=== PATIENT | female | born 1945 | race Caucasian/White ===

== ENCOUNTER 2024-11-05 14:41 | Emergency (ER) | payer MEDICARE ==
[~2024-11-05] VITALS: Ht 162.6 cm; Wt 64.0 kg
[2024-11-05 14:48] VITALS: TEMP 36.6; O2SAT 97
[2024-11-05 16:05] LABS: BASOPHILS % 0.6 % (0.0-2.0); EOSINOPHILS % 0.4 % (0.0-5.0); HEMATOCRIT. 45.2 % (36.0-48.0); HEMOGLOBIN. 15.5 g/dL (12.0-16.0); LYMPHOCYTES % 19.3 % (20.0-50.0); MEAN PLATELET VOLUME 10.3 fl (7.4-10.4); MONOCYTES % 10.3 % (2.0-8.0); NEUTROPHILS % 69.4 % (40.0-76.0); PLATELET 174 x1000/uL (130-400); RED BLOOD CELL COUNT 4.80 mill/uL (4.2-5.4); RED CELL DISTRIBUTION WIDTH 13.6 % (11.6-14.6)
[2024-11-05 16:20] LABS: CREATININE 1.1 mg/dL (0.6-1.0); TROPONIN I HIGH SENSITIVITY 8 ng/L (3.0-34); UREA NITROGEN BLOOD 16 mg/dL (9-23)
[2024-11-05 16:23] LABS: T4 FREE 1.54 ng/dL (0.89-1.76)
[2024-11-05 17:06] LABS: CLARITY URINE CLEAR (CLEAR); COLOR URINE YELLOW (YELLOW); GLUCOSE URINE NEGATIVE (NEGATIVE); KETONES URINE 1+ (NEGATIVE); LEUKOCYTE ESTERASE URINE 1+ (NEGATIVE); NITRITE URINE NEGATIVE (NEGATIVE); OCCULT BLOOD URINE NEGATIVE (NEGATIVE); PH URINE 5.5 (4.5-8.0); PROTEIN URINE NEGATIVE (NEGATIVE); SPECIFIC GRAVITY URINE 1.014 (1.005-1.030); UROBILINOGEN URINE 1.0 E.U./dL (0.2-1.0)
[2024-11-05 17:12] VITALS: BP 141/90; PULSE 70; RESP 18; O2SAT 98
[2024-11-05 17:17] LABS: RBC URINE 0-2 /hpf (0-2); SQUAMOUS EPITHELIAL CELL URINE FEW /lpf (RARE/1+)
[2024-11-05 17:18] LABS: BACTERIA URINE TRACE
[2024-11-05] MEDS ORDERED: SULF1TAB48 MT (17:29)
[2024-11-05] MEDS: SULFAMETHOXAZOLE/TRIMETHOPRIM 800/160MG TABLET PO ONE (17:38)
== END 2024-11-05 17:38 | disposition home or self-care (01) ==
LOC: ER 14:41 → CMPBEDREQ 11-06 19:26
DX: R55 Syncope and collapse (principal); N39.0 Urinary tract infection, site not specified; I48.91 Unspecified atrial fibrillation; E05.90 Thyrotoxicosis, unspecified without thyrotoxic crisis or storm; Z88.5 Allergy status to narcotic agent
CPT/HCPCS: 36415; 71045; 80048; 81003; 83735; 83880; 84439; 84443; 84484; 85025; 93005; 99285